=== PATIENT | female | born 1980 | race Hispanic/Latino ===

== ENCOUNTER 2020-11-14 12:27 | Emergency (ER) | payer OTHER ==
[~2020-11-14] VITALS: Ht 162.6 cm; Wt 70.3 kg
[2020-11-14 13:02] LABS: BASOPHILS % 0.3 % (0.0-1.0); EOSINOPHILS # (AUTO) 0.1 (0.0-0.4); EOSINOPHILS % 0.9 % (0.0-6.0); HEMOGLOBIN 14.1 g/dL (12.0-16.0); LYMPHOCYTES # (AUTO) 1.7 (1.0-3.2); LYMPHOCYTES % 22.7 % (18.0-39.1); MEAN CORPUSCULAR HEMOGLOBIN 30.9 pg (28-32); MEAN CORPUSCULAR HGB CONC 34.4 g/dL (31-35); MEAN CORPUSCULAR VOLUME 89.9 fL (81-99); MONOCYTES # (AUTO) 0.6 (0.2-0.8); MONOCYTES % 8.1 % (4.4-11.3); NEUTROPHILS % 67.7 % (38.7-80.0); PLATELET COUNT 222 x10e3/uL (140-360); RED BLOOD COUNT 4.56 x10e6/uL (3.6-5.1); RED CELL DISTRIBUTION WIDTH 12.1 % (11.7-14.4)
[2020-11-14 13:21] LABS: ALANINE AMINOTRANSFERASE 18 IU/L (0-55); ALBUMIN 4.3 g/dL (3.5-5.0); ALBUMIN/GLOBULIN RATIO 1.4 (0.8-2.0); ALKALINE PHOSPHATASE 51 IU/L (40-150); ANION GAP 14.9 mmol/L (8-16); BLOOD UREA NITROGEN 9 mg/dL (7-26); BUN/CREATININE RATIO 12 (6-25); CALCIUM 9.1 mg/dL (8.4-10.2); CARBON DIOXIDE 24 mmol/L (22-29); CHLORIDE 104 mmol/L (98-107); CREATININE, SERUM 0.75 mg/dL (0.57-1.11); EST GLOMERULAR FILTRATION RATE > 60 ML/MIN (60-); GLUCOSE 87 mg/dL (74-118); POTASSIUM 3.9 mmol/L (3.5-5.1); SODIUM 139 mmol/L (136-145)
[2020-11-14 13:47] LABS: LIPASE 21 U/L (8-78)
[2020-11-14 14:44] VITALS: BP 145/101
== END 2020-11-14 14:46 | disposition home or self-care (01) ==
LOC: ER 12:48
DX: R07.9 Chest pain, unspecified (principal); R11.0 Nausea; I10 Essential (primary) hypertension
CPT/HCPCS: 36415; 71045; 80053; 83690; 84484; 85025; 85379; 93005; 99284